=== PATIENT | male | born 1985 | race Caucasian/White ===

== ENCOUNTER 2019-02-27 09:16 | Emergency (ER) | payer MEDICARE ==
[~2019-02-27] VITALS: Ht 180.3 cm; Wt 88.6 kg
[2019-02-27 09:18] VITALS: Ht 180.3 cm; Wt 88.6 kg
[2019-02-27 10:09] LABS: BASOPHILS 0.8 % (0-2); EOSINOPHILS 10.1 % (0-7); HEMATOCRIT 44.6 % (42.0-54.0); HEMOGLOBIN 15.6 g/dL (13.5-17.5); LYMPHOCYTES 35.6 % (15-50); MCH 29.4 pg (26.0-34.0); MEAN PLATELET VOLUME 12.5 fL (7.4-10.4); MONOCYTES 10.9 % (2-11); NEUTROPHILS 42.6 % (40-80); PLATELET COUNT 195 10x3/uL (130-400); RBC 5.31 10x6/uL (4.20-6.10); RDW 12.9 % (11.5-14.5); WBC 5.1 10x3/uL (4.8-10.8)
[2019-02-27 10:18] LABS: APTT 31.8 SECONDS (22.8-39.4); INR 1.1 (0.85-1.17); PROTIME 13.7 SECONDS (11.6-15.0)
--- NOTE | 2019-02-27 10:31 | NUR ---
DR. COYLE NOTIFIED AND REVIEWED PT'S BEHAVIOR AND ASSESSMENT RESULTS. DR. COYLE AND DR. SCRUGGS AGREED PT IS NOT ACTIVELY SUICIDAL. PT REPORTS " I AM JUST DEPRESSED BECAUSE IM HOMELESS." I WOULD NEVER ATTEMPT TO HURT MYSELF AGAIN, I JUST TRYING TO GET MY LIFE TOGETHER AND FIND HOUSING." RESOURCES PROVIDED TO PT AT THIS TIME. RESOURCES REVIEWED WITH PT AND HE VERBALIZED UNDERSTANDING. SAFETY PLAN COMPLETED AT THIS TIME.
[2019-02-27 11:51] LABS: ALBUMIN 3.6 g/dL (3.4-5.0); ALKALINE PHOSPHATASE 66 U/L (46-116); ALT (SGPT) 26 U/L (10-68); CALC OSMOLALITY 276 mosm/kg (275-300); CALCIUM 8.7 mg/dL (8.5-10.1); CARBON DIOXIDE 31.7 mmol/L (21.0-32.0); CHLORIDE - SERUM 106 mmol/L (98-107); GLUCOSE 67 mg/dL (74-106); POTASSIUM - SERUM 3.6 mmol/L (3.5-5.1); PROTEIN - SERUM 6.9 g/dL (6.4-8.2); SODIUM 141 mmol/L (136-145); UREA NITROGEN 8 mg/dL (7-18); eGFR NON AFRICAN AMERICAN > 90 mL/min (90-120)
[2019-02-27] MEDS ORDERED: ALBUTEROL SULF8.5 GM INH (11:58)
[2019-02-27 12:00] LABS: CKMB 0.7 U/L (0.0-3.6); CREATINE KINASE 129 UL (21-232); PRO BNP 26 pg/mL (0-125)
[2019-02-27 12:08] LABS: TROPONIN-I < 0.017 ng/mL (0.000-0.060)
[2019-02-27 12:32] VITALS: BP 106/76
== END 2019-02-27 12:25 | disposition home or self-care (01) ==
LOC: D.ER 09:16
PROVIDERS: Family Medicine
DX: J45.901 Unspecified asthma with (acute) exacerbation (principal)

== ENCOUNTER 2019-03-02 12:58 | Emergency (ER) | payer MEDICARE ==
[~2019-03-02] VITALS: Ht 180.3 cm; Wt 88.6 kg
[~2019-03-02 12:58] MED LIST: ALBUTEROL SULF8.5 GM INH
[2019-03-02 13:02] VITALS: Ht 180.3 cm; Wt 88.6 kg
[2019-03-02 14:03] LABS: APPEARANCE CLEAR (CLEAR); BILIRUBIN NEGATIVE (NEGATIVE); COLOR YELLOW (YELLOW); GLUCOSE NEGATIVE (NEGATIVE); KETONE NEGATIVE (NEGATIVE); NITRITE NEGATIVE (NEGATIVE); PROTEIN NEGATIVE (NEGATIVE); SPECIFIC GRAVITY 1.005 (1.005-1.020); UROBILINOGEN NORMAL (NORMAL)
[2019-03-02 14:08] LABS: BASOPHILS 0.5 % (0-2); EOSINOPHILS 6.8 % (0-7); HEMATOCRIT 42.4 % (42.0-54.0); HEMOGLOBIN 14.6 g/dL (13.5-17.5); IMMATURE GRANULOCYTES 0.3 % (0-5); LYMPHOCYTES 35.5 % (15-50); MCH 29.1 pg (26.0-34.0); MCHC 34.4 g/dL (31.0-37.0); MCV 84.5 fL (80.0-100.0); MEAN PLATELET VOLUME 11.5 fL (7.4-10.4); MONOCYTES 8.6 % (2-11); NEUTROPHILS 48.3 % (40-80); PLATELET COUNT 157 10x3/uL (130-400); RBC 5.02 10x6/uL (4.20-6.10); RDW 12.7 % (11.5-14.5); WBC 6.3 10x3/uL (4.8-10.8)
[2019-03-02 14:50] LABS: CALC OSMOLALITY 277 mosm/kg (275-300); CALCIUM 8.7 mg/dL (8.5-10.1); CARBON DIOXIDE 30.1 mmol/L (21.0-32.0); CHLORIDE - SERUM 105 mmol/L (98-107); CREATININE - SERUM 0.9 mg/dL (0.6-1.3); GLUCOSE 89 mg/dL (74-106); POTASSIUM - SERUM 3.8 mmol/L (3.5-5.1); SODIUM 141 mmol/L (136-145); UREA NITROGEN 6 mg/dL (7-18); eGFR NON AFRICAN AMERICAN > 90 mL/min (90-120)
[2019-03-02 15:35] VITALS: BP 116/58
== END 2019-03-02 15:35 | disposition home or self-care (01) ==
LOC: D.ER 12:58
PROVIDERS: Emergency Medicine
DX: K59.00 Constipation, unspecified (principal); F17.200 Nicotine dependence, unspecified, uncomplicated